=== PATIENT | male | born 1955 | race Caucasian/White ===

== ENCOUNTER 2017-08-11 09:57 | Emergency (ER) | payer OTHER ==
[2017-08-11] MEDS ORDERED: Diphtheria,Pertussis(Acell),Tetanus Vaccine 0.5 ML Syringe IM ONE (10:32)
--- NOTE | 2017-08-11 10:43 | EDM.PDOC ---
ED HPI GENERAL MEDICAL PROBLEM - General Chief Complaint: Lower Extremity Injury/Pain Stated Complaint: RIGHT FOOT PAIN WORK RELATED Time Seen by Provider: 08/11/17 10:33 Source of Information: Reports: Patient History Limitations: Reports: No Limitations - History of Present Illness INITIAL COMMENTS - FREE TEXT/NARRATIVE: HISTORY AND PHYSICAL: History of present illness: Patient is a 62-year-old male who presents to the emergency room today with complaints of a puncture wound to the right foot. States he was unloading [employer] and a piece of metal fell from the back of the truck puncturing between the first and second toe and exiting mid foot near the base of the great toe. Currently there is no foreign body in the foot and he has minimal pain. Reports there is some burning with movement. Patient was able to ambulate into the room without any difficulty. Will be updated today as he is unsure of his last vaccine date. Review of systems: As per history of present illness and below otherwise all systems reviewed and negative. Past medical history: As per history of present illness and as reviewed below otherwise noncontributory. Surgical history: As per history of present illness and as reviewed below otherwise noncontributory. Social history: No reported history of drug or alcohol abuse. Family history: As per history of present illness and as reviewed below otherwise noncontributory. Physical exam: Gen.: Nontoxic appearing 62-year-old male. Alert and oriented. Appropriate for age. HEENT: Atraumatic, normocephalic, pupils reactive, negative for conjunctival pallor or scleral icterus, mucous membranes moist, throat clear, neck supple, nontender, trachea midline. Lungs: Clear to auscultation, breath sounds equal bilaterally, chest nontender. Heart: S1S2, regular, negative for clicks, rubs, or JVD. Abdomen: Soft, nondistended, nontender. Negative for masses or hepatosplenomegaly. Negative for costovertebral tenderness. Pelvis: Stable nontender. Genitourinary: Deferred. Rectal: Deferred. Extremities: Puncture wound between the right great toe and second toe ( enterance) with an exit wound at the solar base of the great toe. CMS intact. Capillary refill less than 3 seconds. Strong pedal pulses bilaterally. Negative for cords or calf pain. Neurovascular unremarkable. Skin: Starburst puncture between the 1st and 2nd toe on right foot, exit wound at base of great toe is 2 cm - nongaping. Neuro: Awake, alert, oriented. Cranial nerves II through XII unremarkable. Cerebellum unremarkable. Motor and sensory unremarkable throughout. Exam nonfocal. Diagnostics: X-ray Therapeutics: Tdap Wound cleansed/irrigated 1% lidocaine used to anesthetize the lacerated area. 2 simple stitches placed to the 2 cm laceration to the plantar surface. 4-0 nylon used. Patient tolerated well. Impression: Foot injury Puncture wound Plan: 1. These keep the wound clean and dry. Take your antibiotic as prescribed. Monitor for signs of infection. Suture removal in 7-10 days. 2. Take Tylenol and/or ibuprofen as needed for pain management. May apply ice as needed. 3. Follow-up with your primary care provider in the next 1-2 days. Return to the ED as needed and as discussed Definitive disposition and diagnosis as appropriate pending reevaluation and review of above. Onset: Today Onset Date: 08/11/17 Duration: Minutes: Location: Reports: Lower Extremity, Right Right Feet Pain Score (Numeric/FACES): 1 - Related Data Allergies Allergy/AdvReac Type Severity Reaction Status Date / Time No Known Allergies Allergy Verified 08/11/17 10:17 Home Meds: Home Meds Multivit-Min/FA/Lycopene/Lut [Centrum Silver Ultra Men's] 1 tab PO DAILY [History] Past Medical History - Past Health History Medical/Surgical History: Denies Medical/Surgical History - Infectious Disease History Infectious Disease History: Reports: Chicken Pox, Measles, Mumps Social & Family History - Tobacco Use Smoking Status *Q: Never Smoker Second Hand Smoke Exposure: No - Caffeine Use Caffeine Use: Reports: Coffee - Recreational Drug Use Recreational Drug Use: No Review of Systems - Review of Systems Review Of Systems: ROS reveals no pertinent complaints other than HPI. ED EXAM, GENERAL - Physical Exam Exam: See Below (See dictation) ED TRAUMA EXTREMITY PROCEDURES - Laceration/Wound Repair Right Foot Lac/Wound Length In cm: 2 Appearance: Linear Distal NVT: No Tendon Injury Anesthetic Type: Local Local Anesthesia - Lidocaine (Xylocaine): 1% Plain Local Anesthetic Volume: 5cc Skin Prep: Chlorhexidine (Hibiciens), Saline Exploration/Debridement/Repair: Wound Explored, In a Bloodless Field Closed With: Sutures Suture Size: 4-0 # of Sutures: 2 Suture Type: Nylon Course - Vital Signs Last Recorded V/S: Last Vital Signs Temp 37.0 C 08/11/17 11:45 Pulse 75 08/11/17 11:45 Resp 12 08/11/17 11:45 BP 124/58 L 08/11/17 11:45 Pulse Ox 97 08/11/17 11:45 - Orders/Labs/Meds Orders: Active Orders 24 hr Category Date Time Status Communication Order [RC] STAT Care 08/11/17 10:32 Active Vaccines to be Administered [RC] PER UNIT ROUTINE Care 08/11/17 10:32 Active Meds: Medications Discontinued Medications Generic Name Dose Route Start Last Admin Trade Name Freq PRN Reason Stop Dose Admin Diphtheria/Tetanus/Acell Pertussis 0.5 ml 08/11/17 10:32 08/11/17 10:40 Adacel IM 08/11/17 10:33 0.5 ml .ONCE ONE Administration Lidocaine HCl 20 ml 08/11/17 11:40 08/11/17 11:49 Xylocaine 1% INJECT 08/11/17 11:41 20 ml ONETIME ONE Administration Departure - Departure Time of Disposition: 12:05 Disposition: Home, Self-Care 01 Condition: Good Clinical Impression: Puncture wound Foot injury Qualifiers: Encounter type: initial encounter Laterality: right Qualified Code(s): S99.921A - Unspecified injury of right foot, initial encounter - Discharge Information Referrals: PCP,None [Primary Care Provider] - Forms: ED Department Discharge Additional Instructions: My general discharge The following information is given to patients seen in the emergency department who are being discharged to home. This information is to outline your options for follow-up care. We provide all patients seen in our emergency department with a follow-up referral. The need for follow-up, as well as the timing and circumstances, are variable depending upon the specifics of your emergency department visit. If you don't have a primary care physician on staff, we will provide you with a referral. We always advise you to contact your personal physician following an emergency department visit to inform them of the circumstance of the visit and for follow-up with them and/or the need for any referrals to a consulting specialist. The emergency department will also refer you to a specialist when appropriate. This referral assures that you have the opportunity for follow-up care with a specialist. All of these measure are taken in an effort to provide you with optimal care, which includes your follow-up. Under all circumstances we always encourage you to contact your private physician who remains a resource for coordinating your care. When calling for follow-up care, please make the office aware that this follow-up is from your recent emergency room visit. If for any reason you are refused follow-up, please contact the [facility] Emergency Department at and asked to speak to the emergency department charge nurse. [facility] [address] [place] [phone] 1. These keep the wound clean and dry. Take your antibiotic as prescribed. Monitor for signs of infection. Suture removal in 7-10 days. 2. Take Tylenol and/or ibuprofen as needed for pain management. May apply ice as needed. 3. Follow-up with your primary care provider in the next 1-2 days. Return to the ED as needed and as discussed - My Orders Last 24 Hours: My Active Orders 08/11/17 10:32 Communication Order [RC] STAT Vaccines to be Administered [RC] PER UNIT ROUTINE - Assessment/Plan Last 24 Hours: My Active Orders 08/11/17 10:32 Communication Order [RC] STAT Vaccines to be Administered [RC] PER UNIT ROUTINE
[2017-08-11] MEDS ORDERED: Lidocaine 1% 20 ML MDV INJECT ONE (11:40)
--- NOTE | 2017-08-11 11:40 | CR ---
EXAMINATION: Right foot HISTORY: Pain COMPARISON: None TECHNIQUE: 2 views FINDINGS/IMPRESSION: There is no acute osseous abnormality, dislocation, or fracture. There is mild s oft tissue swelling overlying the first MTP joint with early underlying osteoarthritic changes. Remai debi joint spaces and bone mineralization appear preserved. Mild vascular calcifications.
[2017-08-11] MEDS ORDERED: Bacitracin Oint 1 GM U/D Packet TOP ONE (12:18)
== END 2017-08-11 12:38 | disposition home or self-care (01) ==
LOC: MW.ED 09:57
DX: S91.331A Puncture wound without foreign body, right foot, initial encounter (principal); Z23 Encounter for immunization; W20.8XXA Other cause of strike by thrown, projected or falling object, initial encounter; Y93.89 Activity, other specified
CPT/HCPCS: 12001; 73620-26-RT; 73620-RT; 90471; 90715; 99283; 99283-25